=== PATIENT | female | born 1975 | race Asian ===

== ENCOUNTER 2016-03-11 15:53 | Emergency (ER) | payer OTHER ==
[~2016-03-11] VITALS: Wt 50.0 kg
[~2016-03-11 15:53] MED LIST: NO MEDS
[2016-03-11] MEDS ORDERED: IBUPROFEN 200 MG TAB PO ONE (16:30)
[2016-03-11 16:32] VITALS: RESP 18
--- NOTE | 2016-03-11 16:57 | RADRPT ---
PROCEDURE: XR shoulder, right. CLINICAL INDICATION: Injury, pain TECHNIQUE: internal and external rotation views and scapular Y-view of the right shoulder were per formed. COMPARISON: None. FINDINGS: There is normal osseous mineralization and alignment. No fracture or osseous lesion is identified. T here is normal alignment of the glenohumeral and acromioclavicular joints. The soft tissues are unre markable. IMPRESSION: Unremarkable right shoulder. No visualized fracture or dislocation. RPTAT: GG .John Zeng MD, MD Date Time Electronically viewed and signed by .John Zeng MD, MD on 03/11/2016 16:56 .T/
--- NOTE | 2016-03-11 16:58 | RADRPT ---
PROCEDURE: XR Elbow. CLINICAL INDICATION: Injury, pain TECHNIQUE: AP, lateral and oblique views of the right elbow performed. COMPARISON: None. FINDINGS: There is normal mineralization and alignment. No fracture or osseous lesion is identified. There are normal joints without evidence of arthritis or effusion. The soft tissues are unremarkable. IMPRESSION: Unremarkable examination. No visualized fracture or dislocation. RPTAT: GG .John Zeng MD, MD Date Time Electronically viewed and signed by .John Zeng MD, on 03/11/2016 16:58 .T/
--- NOTE | 2016-03-11 17:00 | RADRPT ---
PROCEDURE: XR Forearm. CLINICAL INDICATION: Trauma, pain TECHNIQUE: AP and lateral views of the right forearm were obtained. COMPARISON: No prior studies are available for comparison. FINDINGS: There is normal mineralization and alignment. No fracture or osseous lesion is identified. There are normal joints without evidence of arthritis or effusion. The soft tissues are unremarkable. IMPRESSION: Unremarkable right forearm. No visualized fracture or dislocation. RPTAT: GG .John Zeng MD, MD Date Time Electronically viewed and signed by .John Zeng MD, MD on 03/11/2016 16:59 .T/
[2016-03-11] MEDS ORDERED: IBUP400T22 PO (17:17)
--- NOTE | 2016-03-11 17:20 | ERD ---
ER Documentation Chief Complaint Date/Time DATE: 03/11/16 TIME: 17:18 Chief Complaint right arm pain from a fall about 1 week ago. no deformity HPI This 40-year-old female fell onto her right arm approximate 1 week ago which. She complains of persistent pain in the right shoulder, right elbow and right wrist. She denies any restricted range of motion weakness. She has additional complaint of a lesion on her right foot for several months. Slowly growing. She denies any history of foreign body or inciting events. ROS All systems reviewed and are negative except as per history of present illness. Medications Home Meds Active Scripts Ibuprofen* (Motrin*) 400 Mg Tab, 400 MG PO Q6, #20 TAB Prov:HARESH JACKSON MD 03/11/16 Reported Medications [No Meds] No Conflict Check 07/11/10 Allergies Allergies: Coded Allergies: No Known Allergies (Verified Allergy, Mild, 07/11/10) No Known Drug Allergy (Verified Allergy, Unknown, 08/10/09) PMhx/Soc History of Surgery: No Anesthesia Reaction: No Hx Neurological Disorder: No Hx Respiratory Disorders: No Hx Cardiac Disorders: No Hx Psychiatric Problems: No Hx Miscellaneous Medical Probl: No Hx Alcohol Use: No Hx Substance Use: No Hx Tobacco Use: No Physical Exam Vitals Vital Signs Date Time Temp Pulse Resp B/P Pulse Ox O2 Delivery O2 Flow Rate FiO2 03/11/16 16:32 18 98 Room Air 03/11/16 15:59 98.5 73 20 131/78 100 Physical Exam Const: [] Alert, [id number]. Head: Atraumatic Eyes: Normal Conjunctiva ENT: Normal External Ears, Nose and Mouth. Neck: Full range of motion..~ No meningismus. Resp: Clear to auscultation bilaterally Cardio: Regular rate and rhythm, no murmurs Abd: Soft, non tender, non distended. Normal bowel sounds Skin: No petechiae or rashes. On the bottom of the right foot there are 2 large approximately three-quarter centimeter, tender verruca lesions without erythema, warmth, fluctuance, discharge. Back: No midline or flank tenderness Ext: No cyanosis, or edema Neur: Awake and alert Psych: Normal Mood and Affect Results 24 hrs Current Medications Medications (Trade) Dose Ordered Sig/Dayanara Route PRN Reason Start Time Stop Time Status Last Admin Dose Admin Ibuprofen (Motrin) 400 mg ONCE ONCE PO 03/11/16 16:30 03/11/16 16:31 DC 03/11/16 16:20 Procedures/MDM X-ray right shoulder 3V Interpreted by me: Bones: [No fracture] Joints: [No dislocation] Foreign body: [None]. Impression-normal right shoulder x-ray X-ray right elbow 3V Interpreted by me: Fat Pads: [Normal] Bones: [No fracture] Joints: [No dislocation] Foreign body: [None]. Impression-normal right elbow x-ray X-ray right wrist 3V Interpreted by me: Scaphoid: [Normal] Bones: [No fracture] Joints: [No dislocation] Foreign body: [None]. Patient have a normal right wrist x-ray Patient presents with signs and symptoms of right upper extremity contusion or sprain without evidence of fracture, dislocation, neurologic deficit, bacterial infection. She has signs of 2 plantar warts on her right foot. She will referred to podiatry for evaluation of her plantar warts instructions to follow- up with PCP and possibly orthopedist for persistent right arm pain. She will be given a prescription of ibuprofen for pain. She should return for fevers, redness, new or worsening symptoms. Departure Diagnosis: Primary Impression: Contusion Encounter type: initial encounter Contusion area: elbow Laterality: right Qualified Code: S50.01XA - Contusion of right elbow, initial encounter Additional Impression: Pain of right arm Patient Instructions: Contusion, Upper Extremity, Plantar Warts Referrals: MARK BAEZ DPM LASHAUN ESCOBAR DPM STACIE FELTON DPM Additional Instructions: X-rays normal today. Recheck with primary doctor orthopedist for pain next week. See upholstery instructor for evaluation of plantar warts. May need authorization for specialist visits by primary doctors. HARESH JACKSON MD Mar 11, 2016 17:20
== END 2016-03-11 17:34 | disposition home or self-care (01) ==
LOC: FTE 15:53
DX: S50.01XA Contusion of right elbow, initial encounter (principal); S59.911A Unspecified injury of right forearm, initial encounter; W18.39XA Other fall on same level, initial encounter; Y92.9 Unspecified place or not applicable
CPT/HCPCS: 73030; 73080; 73090; Z7610